=== PATIENT | female | born 1955 | race African-American/Black ===

== ENCOUNTER → 2017-05-15 | Outpatient (CLI) | payer OTHER ==
[~2017-05-15] MED LIST: CERTAGEN PO; NORVASC PO
--- NOTE | ~2017-05-15 | MY29 ---
[facility] A Service of [facility] & [facility] RADIOLOGY TEXT RESULTS PATIENT: MEKHI MORE LOCATION: [facility] : 51 UNIT #: [id number] AGE: [address]: Jacquelyn Barger APRN SEX: F ORDER DR: [id number] [facility] [address] [place], [place] [address] [id number] O MR#: [id number] Acc #: [id number] NAME: MEKHI MORE : 1955 SEX: F STUDY DATE/TIME: 05/15/2017 13:30 UNIT: [facility] ROOM: STUDY DESCRIPTION: [facility] SCREENING W/ CAD BILAT Attending Physician: Jacquelyn Barger A.P.R.N. Referring Physician: Jacquelyn Barger A.P.R.N. Ordering Physician: Jacquelyn Barger A.P.R.N. Primary Care Physician: Jacquelyn Barger A.P.R.N. MEDICAL IMAGING REPORT This report is preliminary unless electronic signature is present EXAMINATION Bilateral digital screening mammogram with CAD. DATE 05/15/2017 HISTORY 61-year-old female with no personal or family history of breast cancer or current complaints. COMPARISON Bilateral screening mammogram 03/16/2016, 11/17/2014, 11/11/2013. FINDINGS CC and MLO views were obtained of each breast utilizing digital technique and reviewed with an FDA-approved CAD device. 5 cm circumscribed nodule in the posterior upper outer left breast is unchanged from previous examinations, in keeping with benign finding such as a small intramammary lymph node. The parenchymal pattern appears stable. Scattered fibroglandular densities bilaterally. No architectural distortion or microcalcification. No abnormal skin thickening or nipple retraction. IMPRESSION BIRADS 1. Negative screening mammogram. Routine screening mammogram is recommended in one year. Patients over the age of 40 are entered into a reminder system with target due date for the next mammogram. A result letter will also be sent to the patient. BIRADS: 1 Negative. STS. [facility] A Service of [facility] RADIOLOGY TEXT RESULTS PATIENT: MEKHI MORE LOCATION: [facility] : [birth year] UNIT #: [id number] AGE: [address]: Jacquelyn Barger APRN SEX: F ORDER DR: Dictated by... Maxine San M.D. THIS IS AN ELECTRONICALLY VERIFIED REPORT Maxine San M.D. at 05/18/2017 8:34 AM SABINA/margot TD: 05/16/2017 00:34 JOB #: [id number] MEDICAL IMAGING REPORT Page 1 of 1 COPY
== END | disposition home or self-care (01) ==
LOC: CWCC 13:14
DX: Z12.31 Encounter for screening mammogram for malignant neoplasm of breast (principal)
CPT/HCPCS: G0202